=== PATIENT | male | born 1975 | race Caucasian/White ===

== ENCOUNTER 2016-09-09 00:10 | Emergency (ER) | payer SELFPAY ==
[2016-09-09] MEDS ORDERED: ASPIRIN 81 MG TABLET, CHEWABLE PO ONE (00:18)
[2016-09-09] MEDS ORDERED: MORPHINE SULFATE 10 MG/ML INJ IV ONE ×2 (00:54→03:26)
[2016-09-09] MEDS ORDERED: FAMOTIDINE INJ/PF 20 MG/2 ML SDV IV ONE (00:54)
[2016-09-09 00:57] LABS: ABSOLUTE BASOPHILS # (AUTO) 0.1 10^3/uL (0.0-0.2); ABSOLUTE EOSINOPHILS # (AUTO) 0.4 10^3/uL (0.0-0.6); ABSOLUTE LYMPHOCYTES (AUTO) 2.9 10^3/uL (0.5-4.7); ABSOLUTE MONOCYTES (AUTO) 0.6 10^3/uL (0.1-1.4); ABSOLUTE NEUT (AUTO) 6.2 10^3/uL (1.7-8.2); BASOPHILS % (AUTO) 0.8 % (0-2); HEMOGLOBIN 17.1 g/dL (13.5-17.0); HGB HCT DIFFERENCE 0.3; LYMPHOCYTES % (AUTO) 28.7 % (13-45); MEAN CORPUSCULAR HEMOGLOBIN 30.3 pg (27.0-33.4); MEAN CORPUSCULAR HGB CONC 33.5 g/dL (32.0-36.0); MEAN CORPUSCULAR VOLUME 90 fl (80-97); MONOCYTES % (AUTO) 6.1 % (3-13); RED BLOOD COUNT 5.64 10^6/uL (4.35-5.55); RED CELL DISTRIBUTION WIDTH 13.5 % (11.5-14.0); SEGMENTED NEUTROPHILS % (AUTO) 60.4 % (42-78); WHITE BLOOD COUNT 10.3 10^3/uL (4.0-10.5)
[2016-09-09] MEDS ORDERED: NORMAL SALINE 1000 ML 1,000 ML IV PRN ×3 (00:57→03:07)
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
[2016-09-09 01:01] LABS: ALANINE AMINOTRANSFERASE 38 U/L (21-72); ALKALINE PHOSPHATASE 94 U/L (38-126); ANION GAP 15 (5-19); ASPARTATE AMINO TRANSFERASE 37 U/L (17-59); BILIRUBIN,TOTAL 0.5 mg/dL (0.2-1.3); BLOOD UREA NITROGEN 10 mg/dL (7-20); CALCIUM 9.3 mg/dL (8.4-10.2); CARBON DIOXIDE 25 mmol/L (22-30); CHLORIDE 108 mmol/L (98-107); CREATINE KINASE 631 U/L (55-170); GLUCOSE 109 mg/dL (75-110); POTASSIUM 4.4 mmol/L (3.6-5.0); SODIUM 148.2 mmol/L (137-145); TOTAL PROTEIN 7.5 g/dL (6.3-8.2)
[2016-09-09 01:13] LABS: CREATINE KINASE MB 4.07 ng/mL (<4.55)
[2016-09-09 01:15] LABS: TROPONIN I < 0.012 ng/mL
[2016-09-09] MEDS ORDERED: LORAZEPAM INJ 2 MG/1 ML VIAL IV ONE ×2 (01:50→04:10)
[2016-09-09] MEDS ORDERED: METOPROLOL TARTRATE PF/INJ 5 MG/5 ML SDV IV ONE (03:41)
[2016-09-09 03:59] LABS: URINE BARBITURATES SCREEN NEGATIVE; URINE METHADONE SCREEN NEGATIVE; URINE OPIATES LOW UNCONFIRMED POSITIVE; URINE PHENCYCLIDINE SCREEN NEGATIVE
[2016-09-09 05:18] VITALS: BP 172/109
--- NOTE | 2016-09-09 23:45 | EKG REPORT ---
SEVERITY:- ABNORMAL ECG - SINUS RHYTHM NONSPECIFIC INTRAVENTRICULAR CONDUCTION DELAY PROBABLE LEFT VENTRICULAR HYPERTROPHY : Confirmed by: France Lopez 09-Sep-2016 23:44:09
--- NOTE | 2016-09-10 08:13 | EKG REPORT ---
SEVERITY:- ABNORMAL ECG - SINUS TACHYCARDIA NONSPECIFIC INTRAVENTRICULAR CONDUCTION DELAY BORDERLINE INFERIOR Q WAVES ST DEPRESSION, CONSIDER ISCHEMIA, INF LEADS : Confirmed by: Gene Denny MD 10-Sep-2016 08:13:07
== END 2016-09-09 05:15 | disposition home or self-care (01) ==
LOC: ER 00:10
DX: R07.89 Other chest pain (principal); I10 Essential (primary) hypertension; F10.120 Alcohol abuse with intoxication, uncomplicated; R06.02 Shortness of breath
CPT/HCPCS: 93005; 96376; 99285; 96361; 96374; 96375; 36415; 82553; 80307 ×2; 82550; 85025; 80053; 84484; 71010; 71275; 93010; J3490; J2270; J2060; J7030; S0028

== ENCOUNTER 2016-09-12 12:19 | Emergency (ER) | payer SELFPAY ==
--- NOTE | 2016-09-12 13:01 | ER Document Report ---
ED Medical Screen (RME) - General Stated Complaint: CHEST PAIN Notes: 41 yo male c/o left sided chest pain x 5 days. constant pressure. nonradiating. aggrevated with deep breathing and moving. + shortness of breath. no nausea. + HTN, + smoker, no DM, no personal cardiac hx, + family cardiac hx. Took ASA at home, 650mg. also c/o pain to right groin with coughing and lifting since last saturday TRAVEL OUTSIDE OF THE [place] IN LAST 30 DAYS: No - Related Data Allergies/Adverse Reactions: No Known Allergies Allergy (Verified 09/12/16 12:57) Past Medical History - Past Medical History Cardiac Medical History: Reports: Hx Hypertension Renal/ Medical History: Denies: Hx Peritoneal Dialysis Past Surgical History: Reports: Hx Orthopedic Surgery - left thumb surgery, R HAND - Immunizations Immunizations up to date: No Hx Diphtheria, Pertussis, Tetanus Vaccination: No - given today Physical Exam - Vital signs Vitals: Temp Pulse Resp BP Pulse Ox 98.1 F 91 22 H 151/96 H 97 09/12/16 12:55 09/12/16 12:55 09/12/16 12:55 09/12/16 12:55 09/12/16 12:55 Course - Vital Signs Vital signs: Temp Pulse Resp BP Pulse Ox 98.1 F 91 22 H 151/96 H 97 09/12/16 12:55 09/12/16 12:55 09/12/16 12:55 09/12/16 12:55 09/12/16 12:55
[2016-09-12 13:29] LABS: APPEARANCE,URINE CLEAR; BILIRUBIN,URINE NEGATIVE (NEGATIVE); GLUCOSE, URINE NEGATIVE (NEGATIVE); KETONES,URINE NEGATIVE (NEGATIVE); LEUKOCYTE ESTERASE,URINE NEGATIVE (NEGATIVE); NITRITE,URINE NEGATIVE (NEGATIVE); PROTEIN,URINE NEGATIVE (NEGATIVE); URINE SPECIFIC GRAVITY 1.012; UROBILINOGEN,URINE NEGATIVE mg/dL (<2.0)
[2016-09-12 13:30] LABS: ABSOLUTE EOSINOPHILS # (AUTO) 0.3 10^3/uL (0.0-0.6); ABSOLUTE LYMPHOCYTES (AUTO) 2.3 10^3/uL (0.5-4.7); ABSOLUTE MONOCYTES (AUTO) 0.5 10^3/uL (0.1-1.4); BASOPHILS % (AUTO) 0.5 % (0-2); EOSINOPHILS % (AUTO) 3.4 % (0-6); HEMATOCRIT 48.2 % (37.9-51.0); HEMOGLOBIN 16.5 g/dL (13.5-17.0); HGB HCT DIFFERENCE 1.3; LYMPHOCYTES % (AUTO) 24.6 % (13-45); MEAN CORPUSCULAR HEMOGLOBIN 30.9 pg (27.0-33.4); MEAN CORPUSCULAR HGB CONC 34.2 g/dL (32.0-36.0); MEAN CORPUSCULAR VOLUME 90 fl (80-97); MONOCYTES % (AUTO) 5.8 % (3-13); RED BLOOD COUNT 5.33 10^6/uL (4.35-5.55); RED CELL DISTRIBUTION WIDTH 13.3 % (11.5-14.0); SEGMENTED NEUTROPHILS % (AUTO) 65.7 % (42-78); WHITE BLOOD COUNT 9.2 10^3/uL (4.0-10.5)
--- NOTE | 2016-09-12 13:44 | EKG REPORT ---
SEVERITY:- ABNORMAL ECG - SINUS RHYTHM PROBABLE LEFT VENTRICULAR HYPERTROPHY : Confirmed by: Gene Denny MD 12-Sep-2016 13:44:09
[2016-09-12 13:50] LABS: ALANINE AMINOTRANSFERASE 35 U/L (21-72); ALBUMIN 3.9 g/dL (3.5-5.0); ALKALINE PHOSPHATASE 84 U/L (38-126); ANION GAP 11 (5-19); ASPARTATE AMINO TRANSFERASE 27 U/L (17-59); BILIRUBIN,TOTAL 0.4 mg/dL (0.2-1.3); BLOOD UREA NITROGEN 16 mg/dL (7-20); CALCIUM 9.3 mg/dL (8.4-10.2); CARBON DIOXIDE 27 mmol/L (22-30); CHLORIDE 103 mmol/L (98-107); CREATINE KINASE 84 U/L (55-170); CREATININE RESULT 0.84 mg/dL (0.52-1.25); GLUCOSE 90 mg/dL (75-110); POTASSIUM 4.1 mmol/L (3.6-5.0); SODIUM 141.4 mmol/L (137-145); TOTAL PROTEIN 6.7 g/dL (6.3-8.2)
[2016-09-12 14:12] LABS: TROPONIN I < 0.012 ng/mL
--- NOTE | 2016-09-12 15:20 | ER Document Report ---
ED General - General Information source: Patient TRAVEL OUTSIDE OF THE [place] IN LAST 30 DAYS: No - HPI Patient complains to provider of: Chest Pain Onset: Last week Onset/Duration: Intermittent Exacerbated by: Movement Relieved by: Supine Similar symptoms previously: Yes Recently seen / treated by doctor: Yes - Seen here 09/09/2016 for the same symptoms. <TODD MONTGOMERY - Last Filed: 09/12/16 17:11> <ALBERTO JACKSON - Last Filed: 09/24/16 13:04> - General Chief Complaint: Chest Pain Stated Complaint: CHEST PAIN Notes: Patient is a 41-year-old male presenting to the emergency department concerned of left-sided chest pain. Patient was seen here 09/09/2016 where he had a negative chest x-ray negative and chest CT. He also had cardiac enzymes checked twice, which were unremarkable. Patient also complains of an inguinal hernia. This was examined when he was here, but patient cannot remember being told to follow up with his primary care physician and surgeon. Patient sates that his chest pain comes and goes, but has been more constant recently. 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 Sameer also admits to using cocaine and also drinking alcohol with it on 09/07/2016. Patient was given blood pressure medication on his visit here , which he reports that he has been compliant with. (TODD MONTGOMERY) - Related Data Allergies/Adverse Reactions: No Known Allergies Allergy (Verified 09/12/16 12:57) Past Medical History - General Information source: Patient - Social History Smoking Status: Current Every Day Smoker Chew tobacco use (# tins/day): No Frequency of alcohol use: Occasional Drug Abuse: Cocaine Lives with: Alone Family History: None, Reviewed & Not Pertinent Patient has suicidal ideation: No Patient has homicidal ideation: No - Past Medical History Cardiac Medical History: Reports: Hx Hypertension Past Surgical History: Reports: Hx Orthopedic Surgery - left thumb surgery, R HAND - Immunizations Immunizations up to date: No Hx Diphtheria, Pertussis, Tetanus Vaccination: No - given today <TODD MONTGOMERY - Last Filed: 09/12/16 17:11> Review of Systems - Review of Systems Constitutional: No symptoms reported EENT: No symptoms reported Cardiovascular: See HPI, Chest pain Respiratory: No symptoms reported Gastrointestinal: No symptoms reported. denies: Diarrhea, Nausea, Vomiting Genitourinary: No symptoms reported, Other - Inguinal hernia Male Genitourinary: No symptoms reported Musculoskeletal: No symptoms reported Skin: No symptoms reported Hematologic/Lymphatic: No symptoms reported Neurological/Psychological: See HPI, Headaches -: Yes All other systems reviewed and negative <VALENTINATODD - Last Filed: 09/12/16 17:11> Physical Exam - Vital signs Interpretation: Hypertensive - General General appearance: Appears well, Alert - HEENT Head: Normocephalic, Atraumatic Eyes: Normal Pupils: PERRL - Respiratory Respiratory status: No respiratory distress Chest status: Tender - Reproducable left chest wall pain. Breath sounds: Normal Chest palpation: Normal - Cardiovascular Rhythm: Regular Heart sounds: Normal auscultation Murmur: No - Abdominal Inspection: Other - Right inguinal hernia that can be reduced. Distension: No distension Bowel sounds: Normal Tenderness: Nontender Organomegaly: No organomegaly - Back Back: Normal, Nontender - Extremities General upper extremity: Normal inspection, Nontender, Normal color, Normal ROM , Normal temperature General lower extremity: Normal inspection, Nontender, Normal color, Normal ROM , Normal temperature - Neurological Neuro grossly intact: Yes Cognition: Normal [place] Coma Scale Eye Opening: Spontaneous Larry Coma Scale Verbal: Oriented Larry Coma Scale Motor: Obeys Commands Larry Coma Scale Total: 15 Speech: Normal <TODD MONTGOMERY - Last Filed: 09/12/16 17:11> Course - Laboratory Result Diagrams: 09/12/16 13:05 09/12/16 13:05 <TODD MONTGOMERY - Last Filed: 09/12/16 17:11> - Laboratory Result Diagrams: 09/12/16 13:05 09/12/16 13:05 <ALBERTO JACKSON - Last Filed: 09/24/16 13:04> - Re-evaluation Re-evalutation: 09/12/16 16:19 I personally performed the services described in the documentation, reviewed and edited the documentation which was dictated to my scribe in my presence, and it accurately records my words and actions. Patient presents the emergency department with his at the bedside complaining of constant left anterior chest wall that has been going on since . Patient was seen and evaluated in the emergency department on 09/09/16 for the same chest pain shortness of breath positive EtOH usage and positive drug screen for cocaine. Also with remote history of fall. Patient had been out of his high blood pressure medication is a smoker also with a right inguinal hernia that's reducible. Patient was here with his girlfriend the other day he is now here with his asked for permission to speak in front of his at the bedside and he denied that I had her step out of the room to obtain a full history. He says that he hasn't drink anything since Saturday initially was not forthcoming about when he used cocaine. Says that he took the lisinopril that we gave him however on top of the cocaine and the drinking explained him that the blood pressure would remain in your at risk for stroke. States the pain is exactly the same in character quality frequency duration continuously that it has been for several days 2 sets of cardiac enzymes were done a CT of the chest was done negative for PE dissection or any other abnormalities. Pain is reproducible to touch and movement he has a right easily reducible inguinal hernia the previous ED doctor gave him explicit details to follow up primary care physician and surgeon he says he doesn't know where the paperwork isn't doesn't remember the conversation. His negative workup today blood pressure is slightly elevated but given the history of cocaine the fact that he just started back on his blood pressure medication I'm going to again have him follow -up with his primary care physician one to 2 days given the surgeon for outpatient follow-up no evidence of incarceration and discussed reasons Fredia return sooner (ALBERTO JACKSON) - Vital Signs Vital signs: Temp Pulse Resp BP Pulse Ox 98.1 F 91 15 176/108 H 96 09/12/16 12:55 09/12/16 12:55 09/12/16 17:01 09/12/16 17:01 09/12/16 17:01 (TODD MONTGOMERY) (ALBERTO JACKSON) - Laboratory Laboratory results interpreted by me: 09/12/16 13:05 Urine Blood SMALL H (TODD MONTGOMERY) (ALBERTO JACKSON) Discharge <TODD MONTGOMERY - Last Filed: 09/12/16 17:11> <ALBERTO JACKSON - Last Filed: 09/24/16 13:04> - Discharge Clinical Impression: Chest wall pain, elevated blood pressure, Inguinal hernia Condition: Stable Disposition: HOME, SELF-CARE Instructions: Chest Pain of Unclear Cause ([facility]) Forms: Elevated Blood Pressure, Return to Work Referrals: [facility] [Provider Group] - Follow up tomorrow (in 1-2 days return to the ER sooner for increasing worsening or new symptoms) RICHARD ANGELO MD [ACTIVE STAFF] - Follow up in 3-5 days (Call the office in the a.m. for follow-up appointment in 3-5 days to discuss options for outpatient repair of your hernia return to emergency department sooner for increasing worsening or new symptoms) Scribe Documentation - Scribe Written by Tarun:: Todd Montgomery 09/12/2016 1520 acting as scribe for :: Erasto <TODD MONTGOMERY - Last Filed: 09/12/16 17:11>
[2016-09-12 17:06] VITALS: BP 176/108
== END 2016-09-12 17:14 | disposition home or self-care (01) ==
LOC: ER 12:19
DX: R07.89 Other chest pain (principal); F14.10 Cocaine abuse, uncomplicated; K40.90 Unilateral inguinal hernia, without obstruction or gangrene, not specified as recurrent; I10 Essential (primary) hypertension; R51 Headache; F17.200 Nicotine dependence, unspecified, uncomplicated; Z91.81 History of falling
CPT/HCPCS: 36415; 71020; 80053; 81001; 82550; 82553; 84484; 85025; 93005; 93010; 99285

== ENCOUNTER 2016-11-12 07:16 | Day surgery (SDC) | payer OTHER ==
[2016-10-30 11:25] LABS: HEMATOCRIT 46.5 % (37.9-51.0); HEMOGLOBIN 15.7 g/dL (13.5-17.0); HGB HCT DIFFERENCE 0.6; MEAN CORPUSCULAR HEMOGLOBIN 30.6 pg (27.0-33.4); MEAN CORPUSCULAR HGB CONC 33.8 g/dL (32.0-36.0); MEAN CORPUSCULAR VOLUME 91 fl (80-97); RED BLOOD COUNT 5.13 10^6/uL (4.35-5.55); RED CELL DISTRIBUTION WIDTH 13.7 % (11.5-14.0); WHITE BLOOD COUNT 7.2 10^3/uL (4.0-10.5)
[2016-10-30 11:53] LABS: ANION GAP 11 (5-19); BLOOD UREA NITROGEN 14 mg/dL (7-20); CALCIUM 9.9 mg/dL (8.4-10.2); CARBON DIOXIDE 29 mmol/L (22-30); CHLORIDE 102 mmol/L (98-107); CREATININE RESULT 0.66 mg/dL (0.52-1.25); GLUCOSE 90 mg/dL (75-110); POTASSIUM 4.6 mmol/L (3.6-5.0); SODIUM 142.3 mmol/L (137-145)
[~2016-11-12 07:16] MED LIST: ACETAMINOPHEN 100 ML IV ONE; CEFAZOLIN 1 GM/D5W RTU 1 GM/50 ML RTUPB IV PRN; DEXTROSE 5%-1/2 NORMAL SALINE 1,000 ML IV PRN; FENTANYL CITRATE INJ/PF 100 MCG/2 ML AMPUL ONE; HYDROMORPHONE HCL INJ/PF 2 MG/ML AMPULE ONE; LACTATED RINGERS 1000 ML IV PRN; MIDAZOLAM 2 MG/2 ML INJ ONE; PROPOFOL INJ 200 MG/20 ML VIAL IV ONE
[2016-11-12] MEDS ORDERED: BUPIVACAINE HCL 0.25 % INJ/PF (2.5 MG/1 ML) 30 ML VIAL ONE (08:51)
[2016-11-12] MEDS ORDERED: LIDOCAINE 0.5% INJ-PF (5 MG/ML) 50 ML SDV ONE (08:51)
[2016-11-12] MEDS ORDERED: BACITRACIN INJ 50,000 UNIT VIAL ONE (08:52)
[2016-11-12] MEDS ORDERED: MORPHINE SULFATE 10 MG/ML INJ IV PRN (10:27)
[2016-11-12] MEDS ORDERED: DIPHENHYDRAMINE HCL 50 MG/ML VIAL IV PRN (10:27)
[2016-11-12] MEDS ORDERED: PROMETHAZINE HCL INJ 25 MG/1 ML VIAL IV PRN (10:27)
[2016-11-12] MEDS ORDERED: FENTANYL CITRATE INJ/PF 100 MCG/2 ML AMPUL IV PRN ×3 (10:27)
[2016-11-12] MEDS ORDERED: FENTANYL CITRATE INJ/PF 100 MCG/2 ML AMPUL ONE (11:41)
--- NOTE | 2016-11-12 11:43 | PDOC DISCHARGE SUMMARY ---
Discharge Summary (SDC) - Discharge Final Diagnosis: #1 symptomatic right inguinal hernia. #2 hypertension. #3 tobacco use disorder. Date of Surgery: 11/12/16 Discharge Date: 11/12/16 Condition: Good Treatment or Instructions: #1 activities within moderation encouraged. Activity up to the level of walking encouraged. No heavy lifting over 10 pounds. #2 follow up in my office by appointment in about 1 week. Call for appointment. #3 the wounds covered clean and dry until office visit. #4 hold off on school/work until evaluation in office. #5 may shower in 48 hours, keep operated area as dry as possible. #6 discharge from ambulatory when ASU criteria met. #7 medications per medication reconciliation sheet. #8 Percocet by prescription.. Also may have one Percocet up to every 2 hours when necessary for pain greater than 4 out of 10 while in the ASU #9 Toradol by prescription. Prescriptions: Ketorolac Tromethamine [Toradol 10 mg Tablet] 10 mg PO Q8HP #9 tablet Oxycodone HCl/Acetaminophen [Percocet 5-325 mg Tablet] 1 tab PO ASDIR PRN #15 tab PRN Reason: Discharge Diet: As Tolerated Respiratory Treatments at Home: Deep Breathing/Coughing Report the Following to Your Physician Immediately: Shortness of Breath, Unusual Bleeding
--- NOTE | 2016-11-12 12:14 | Operative Report ---
Operative Report DATE OF SURGERY: 11/12/16 PREOPERATIVE DIAGNOSIS: #1 Symptomatic right inguinal hernia. #2 hypertension. #3 tobacco use disorder. POSTOPERATIVE DIAGNOSIS: #1 Symptomatic right inguinal hernia., Chronically incarcerated. #2 hypertension. #3 tobacco use disorder. OPERATION: Reduction and repair of right indirect inguinal hernia with mesh. SURGEON: SILVIA HERNANDEZ DIRECTOR OF CREATIVE SERVICES: none ANESTHESIA: GA TISSUE REMOVED OR ALTERED: Lipoma of cord. COMPLICATIONS: None ESTIMATED BLOOD LOSS: 10 mL. INTRAOPERATIVE FINDINGS: Of a hernia sac with contents chronically incarcerated , easily reducible into the peritoneum and peritoneal cavity.. Multiple adhesions between the sac and the spermatic cord. Ilioinguinal nerve identified and preserved. Very satisfactory preperitoneal repair accomplished. Some medial posterior inguinal weakness appreciated. Femoral canal clear of content. PROCEDURE: After obtaining informed consent and going over the procedure with [the patient and his family], he was taken to the operating room, he was anesthetized and intubated. The abdomen was prepped and draped in the usual sterile fashion. After the universal timeout, in which it was verified that the patient received IV antibiotic, the procedure commenced. A transverse incision was made in the right lower abdomen abdominal, groin area , just above the pubic tubercle. 6 cm in length.Local, regional anesthesia was infiltrated, just before incision.. Incision was made with a [15 blade scalpel] . Dissection now proceeded through the subcutaneous tissue down to the external oblique aponeurosis. The external ring was identified and the external oblique opened in the line of its fibers. The inguinal canal was thus displayed. Dissection was facilitated by the use a headlight and using loupe magnification. The spermatic cord was dissected off the pubic tubercle and surrounded with a moist [place] drain, the cremasteric fascia was now incised longitudinally revealing the contents of the spermatic cord. The sac was readily evident and this was grasped with a hemostat. It was now dissected in a retrograde fashion into the retroperitoneal space. It was now reduced within the the preperitoneal space. The preperitoneal space was now developed circumferentially. The femoral canal was evaluated as was the posterior wall of the inguinal canal It easily accommodated a sponge which was removed. Hemostasis was checked for and ensured there in. The space between the external and internal oblique aponeuroses was now developed to accommodate the external portion of the mesh. Having done so a Prolene hernia system mesh was now folded, in the poultry farm manager's approved fashion and inserted into the preperitoneal space. The internal portion was deployed flat in the preperitoneal space the external portion was unfolded and tucked beneath the external oblique. Secured with a 0 PDS suture to the internal oblique superiorly, the fascia adjacent to the pubic tubercle medially, inferiorly it was split up to the connector, the the split mesh was now used to surround the spermatic cord. It was reapproximated with a suture of 0 PDS. 0 PDS was now used to approximate the inferior border of the mesh to the shelving edge of Poupart's ligament with a single suture. Laterally the mesh was tucked beneath the external oblique. The external oblique was now reconstituted using a continuous suture of 3-0 PDS. 3-0 PDS interrupted sutures were used to approximate the subcutaneous tissues after removing the Papito drain. The skin was closed using a continuous subcuticular suture of 4-0 Monocryl reinforced with Steri-Strips over benzoin. Copies dictated operative report to Dr. Silvia Guillaume MD.
[2016-11-12] MEDS ORDERED: OXYCODONE-ACETAMINOPHEN 5-325 MG TABLET ONE (12:33)
[2016-11-12] MEDS ORDERED: KETOROLAC TROMETHAMINE 60 MG/2 ML SDV ONE (13:26)
[2016-11-12] MEDS ORDERED: SUCCINYLCHOLINE CHLORIDE INJ 200 MG/10 ML VIAL ONE (13:26)
[2016-11-12] MEDS ORDERED: PHENYLEPHRINE HCL INJ/PF 10 MG/1 ML SDV ONE (13:26)
[2016-11-12] MEDS ORDERED: LIDOCAINE 2% INJ-PF (20 MG/ML) 10 ML AMPUL ONE (13:26)
[2016-11-12 13:33] VITALS: BP 127/68
== END 2016-11-12 13:20 | disposition home or self-care (01) ==
LOC: OROUT 07:16
PROVIDERS: ATTEND Surgery
PROC: 0YU50JZ Supplement Right Inguinal Region with Synthetic Substitute, Open Approach (ICD-10-PCS; principal; 2016-11-12 09:30)
DX: K40.90 Unilateral inguinal hernia, without obstruction or gangrene, not specified as recurrent (principal); D17.6 Benign lipomatous neoplasm of spermatic cord; I10 Essential (primary) hypertension; F17.210 Nicotine dependence, cigarettes, uncomplicated; Z79.899 Other long term (current) drug therapy; Z79.51 Long term (current) use of inhaled steroids
CPT/HCPCS: 36415 ×2; 84132; 85027; 80048; 88304 ×2; 49505; C1781; J2250; J3490 ×3; J0690; J1885; J3010; J1170; J2370; J0330; J2704; J0131; 830

== ENCOUNTER 2017-08-25 18:47 | Emergency (ER) | payer SELFPAY ==
[2017-08-25] MEDS ORDERED: DIPH/PERTUSS(ACELL)/TETANUS VAC/PF 0.5 ML SYR (>=10YO) IM ONE (19:03)
[2017-08-25] MEDS ORDERED: OXYCODONE-ACETAMINOPHEN 5-325 MG TABLET PO ONE (19:03)
[2017-08-25] MEDS ORDERED: TETRACAINE HCL 0.5% OPH SOLN 2 ML OD ONE (19:04)
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
--- NOTE | 2017-08-25 19:39 | RADIOLOGY REPORT (SQ) ---
No radiopaque foreign body EXAM DESCRIPTION: CT FACIAL AREA WITHOUT COMPLETED DATE/TIME: 08/25/2017 7:15 pm REASON FOR STUDY: r/o fb right orbit COMPARISON: None. TECHNIQUE: Noncontrasted images through the facial bones and orbits windowed for bone and soft tissu e. Additional coronal and sagittal reconstructed images reviewed. All images stored on PACS. All CT scanners at this facility use dose modulation, iterative reconstruction, and/or weight based d osing when appropriate to reduce radiation dose to as low as reasonably achievable (ALARA). [facility]: Dose Right [facility]: CareDose [facility]: Dose Right [facility]: Teradose 4D [facility]: Smart [employer] RADIATION DOSE: CT Rad equipment meets quality standard of care and radiation dose reduction techniq ues were employed. CTDIvol: 30.4 mGy. DLP: 600 mGy-cm. mGy. LIMITATIONS: None. FINDINGS: FACIAL BONES: No fracture or bone lesion. ORBITS: Intact. No fracture. Symmetric intact globes and retroorbital soft tissues. No radiopaque foreign body PARANASAL SINUSES: Clear. No significant mucosal thickening, mass or fluid. No nasal polyps. Maxill shaun sinus outlets are patent. SOFT TISSUES: No mass or edema. Laceration over the right upper outer orbital rim. INFERIOR BRAIN: Limited view. No acute findings. OTHER: Facet arthropathy on the left at C2-3 and C3-4 at the bottom edge of the field of view. IMPRESSION: Laceration of the soft tissues over the right upper outer orbital rim. No retained radi opaque foreign body. No underlying facial fracture. TECHNICAL DOCUMENTATION: JOB ID: [id number] Quality ID # [id number]: Final reports with documentation of one or more dose reduction techniques (e.g., Au tomated exposure control, adjustment of the mA and/or kV according to patient size, use of iterative reconstruction technique) 2010 [employer]- All Rights Reserved
[2017-08-25] MEDS ORDERED: LIDOCAINE 1% INJ (10 MG/ML) 10 ML MDV INJ ONE (20:37)
[2017-08-25] MEDS ORDERED: POLYMYXIN B SULFATE/TMP OPH SOLN (10 ML/ER DISP) OD PRN (20:37)
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
[2017-08-25] MEDS ORDERED: LIDOCAINE 1% INJ-PF (10 MG/ML) 30 ML SDV ONE (20:48)
[2017-08-25 21:33] VITALS: BP 155/104
== END 2017-08-25 21:33 | disposition home or self-care (01) ==
LOC: ER 18:47
PROC: 0HQ1XZZ Repair Face Skin, External Approach (ICD-10-PCS; principal; 2017-08-25)
DX: S01.81XA Laceration without foreign body of other part of head, initial encounter (principal); S09.90XA Unspecified injury of head, initial encounter; S05.01XA Injury of conjunctiva and corneal abrasion without foreign body, right eye, initial encounter; S09.93XA Unspecified injury of face, initial encounter; I10 Essential (primary) hypertension; W22.8XXA Striking against or struck by other objects, initial encounter; F17.200 Nicotine dependence, unspecified, uncomplicated
CPT/HCPCS: 99283; 90471; 70486; 90715; 12011; J3490